=== PATIENT | female | born 1960 ===

== ENCOUNTER 2019-07-25 07:45 | Inpatient (IN) | payer OTHER ==
[2019-07-25] MEDS ORDERED: MEGESTROL ACETA40 MG PO (12:34)
[2019-07-25] MEDS ORDERED: VITAMIN C100 MG PO (12:35)
[2019-07-25] MEDS ORDERED: VITAMIN D-32000 UNIT PO (12:35)
== END 2019-08-02 12:19 | DRG 741 ==
LOC: O/R 07:45 → SURH 07-30 07:45 → OB/GYN 07-30 09:52 → O/R 07-30 09:52 → SURH 07-30 11:30 → OB/GYN 07-30 19:21
PROVIDERS: ADMIT Obstetrics & Gynecology
PROC: 0UT70ZZ Resection of Bilateral Fallopian Tubes, Open Approach (ICD-10-PCS; 2019-07-30)
PROC: 0UT90ZZ Resection of Uterus, Open Approach (ICD-10-PCS; principal; 2019-07-30 11:30)
DX: C54.1 Malignant neoplasm of endometrium (principal); N83.292 Other ovarian cyst, left side; N83.291 Other ovarian cyst, right side